=== PATIENT | female | born 1935 | race Caucasian/White ===

== ENCOUNTER 2023-05-14 03:26 | Inpatient (IN) | payer OTHER, SELFPAY ==
[2023-05-13 19:46] VITALS: BP 142/93
[2023-05-13 20:18] LABS: % Basophils 0.4 % (0-2); % Eosinophils 0.6 % (0-6); % Immature Granulocytes 0.2 % (0-0.5); % Lymphocytes 46.8 % (20.5-51.1); % Monocytes 11.4 % (1.7-9.3); % Neutrophils 40.6 % (42.2-75.2); Absolute Lymphocytes 2.2 10^3/uL (1.2-3.4); Absolute Monocytes 0.5 10^3/uL (0.1-0.6); Absolute Neutrophils 1.9 10^3/uL (1.4-6.5); Hemoglobin 14.9 g/dL (12.0-16.0); Mean Corp Hgb Conc. 34.7 g/dL (33.0-37.0); Mean Corpuscular Hgb 29.9 pg (27.0-31.0); Mean Corpuscular Volume 86.3 fL (81.0-99.0); Mean Platelet Volume 10.9 fL (7.4-10.4); Nucleated Red Blood Cells % 0 %; Platelet Count 178 10^3/uL (130-400); Red Blood Cell Count 4.98 10^6/uL (4.20-5.40); Red Cell Dist. Width 12.8 % (11.5-14.5); White Blood Cell Count 4.7 10^3/uL (4.8-10.8)
[2023-05-13 20:32] LABS: COVID-19 Antigen Negative (Negative)
[2023-05-13 20:35] LABS: ALT (SGPT) 20 U/L (0-35); AST (SGOT) 28 U/L (14-36); Alkaline Phosphatase 104 U/L (38-126); Blood Urea Nitrogen 20 mg/dl (7-17); Calcium 9.2 mg/dl (8.4-10.2); Carbon Dioxide 29 mmol/L (22-30); Chloride 104 mmol/L (98-107); Glucose 118 mg/dl (70-99); Potassium 3.5 mmol/L (3.5-5.1); Sodium 137 mmol/L (135-145); Total Bilirubin 0.8 mg/dl (0.2-1.3); eGFR > 60.00
[2023-05-13 21:02] VITALS: BP 110/75
[2023-05-13 22:00] VITALS: BP 122/82
--- NOTE | 2023-05-13 23:18 | ED.GENMED ---
History of Present Illness
General
Chief Complaint: Cough
Source: patient and family
Exam Limitations: other (daughter helped with interpreting)
Time Seen by Provider: 05/13/23 22:23
Nursing documentation reviewed up to this point in time: agreed with
Travel History
Have you had any contact with someone who has COVID-19?: Yes
Comment: patient
Do you have any symptoms of coronavirus? Fever > 100 degrees, chills, cough, shortness of breath, sore throat, loss of taste or smell, muscle aches, or headache?: Yes
Symptoms:: cough
History of Present Illness
History of Present Illness:
pt is a 87 y/o F coming from home
with daughter
2 weeks ago tested pos for covid at home; had low grade temp, cough. never really got rid of the cough
pt has had low energy, poor appetite, dizziness, and is couhgin frequently
then today earler around 4 pm she felt some shoulder pain that was pretty bad. it has eased up.
on arrival she was told she was in a fib. which is new for her.
she has never had A fib.
she doesn't feel any palpitations and doesn't admit to feeling sob
but daughter says she has been much less active than normal the past 2 weeks, just walking to the bathroom and then then the nuzhat and back to bed.
pt has not had any new fever, hemoptysis.
Past History
Past History
ED Past Medical History: HTN and NIDDM
Social History
Tobacco: Non-smoker
Alcohol: None
Drug: None
Personal: Single
Living: with family
Review of Systems
Review of Systems
Allergies reviewed?: Yes
All Other Systems: Not applicable
Phy Exam
Physical Exam
Physical Exam:
GENERAL: Alert , in no apparent distress
EYE: pupils equal and reactive
NECK: Supple
ENT: o/p clr, mmm.
CARDIAC: Regular rate and rhythm .
LUNGS: coughing occasionally, mildly tachypneic, diminished bases;
ABDOMEN: Soft, obese, nontender without focal tenderness, no r/g, no cvat, normal bowel sounds
NEUROLOGICAL: Alert and oriented, no focal neuro deficits
SKIN: Warm and dry, skin intact.
MUSCULOSKELETAL: No edema, well perfused. neg felisha's sign
PSYCH: Normal and appropriate interaction.
Course
Orders/Labs/Results
Orders:
Orders
05/13/23 19:54
EKG [Electrocardiogram (*1)] Urgent
Reason for Study: Tachycardia
EKG- Treatment ONCE
05/13/23 20:07
CMP [Comprehensive Metabolic Panel] Urgent
Complete Blood Count/With Diff Urgent
Influenza A+B Rapid Molecular Urgent
DANICA Source: Nasal Swab
Specimen Description:
05/13/23 20:08
COVID-19 Antigen Urgent
Source: Nasal Swab
05/13/23 20:10
CR Chest - 2 Views Urgent
Comment:
Reason For Exam: cough
05/13/23 23:12
NT-proBNP Urgent
Troponin I Urgent
05/14/23 00:00
CT Chest Pe Study Urgent
Reason For Exam: new onset afib, cough, sob, shoulder pain
05/14/23 01:03
0.9% Sodium Chloride 500 ml [Nss] 500 ml IV BOLUS
05/14/23 02:07
Dexamethasone Sod Phosphate [Decadron] 10 mg IV NOW STA
Diltiazem HCl [Cardizem] 15 mg IV NOW STA
05/14/23 02:32
Admit/Transfer Patient As Directed
Co-Sign Provider:
Level of Care: Inpatient admission
Assign to:: Telemetry
Physician / Group: [email or web address]
Diagnosis: New onset fast AF , Post covid syndrome
Reason for Telemetry: Arrhythmia
Date to Stop Telemetry: 05/17/23
Time to Stop Telemetry: 11:00
Reason for Hospitalization: New onset fast AF , Post covid syndrome
Expected length of stay greater than two midnights?: Yes
ELOS- Estimated Length of Stay in days: 3
I certify the patient meets the requirements for IP care: Yes
05/14/23 02:34
Code Status As Directed
Resuscitation Status: Full Code
05/14/23 03:27
Dextrose 50%-Water [Dextrose 50% Syringe] 12.5 grams IV [id number] PRN
Glucagon [GlucaGen] 1 mg IM PRN PRN
Metoprolol [Lopressor] 5 mg IV Q4HPRN PRN
05/14/23 03:27
CARDIOLOGY CONSULT Routine
Consulting Provider: Ita Crawley
Was physician already notified: No
Reason for consult: New onset fast AF , Post covid syndrome
Consult Notification Routine
Specialty to Notify: Cardiology
Activity As Directed
Activity Level: With Assistance
Bedside Glucose Monitoring As Directed
Frequency: AC&HS
Comment: Change to q6h if pt on TPN, tube feeding or not eating
Intake/ Output As Directed
Frequency: Per unit guidelines
Vital Signs As Directed
Frequency: Per unit guidelines
Weight As Directed
Frequency: Daily
DX Deep Vein Thrombosis Video Routine
05/14/23 06:00
Echo 2D MMode Color/Doppler IN AM
Reason for Study: new onset AF
1800 calorie (15 carb) Diabetic
Basic Metabolic Panel IN AM
Glycohemoglobin (HgbA1c) IN AM
Occupational Therapy Consult [Ot Eval And Treat] IN AM
Physical Therapy Consult [Pt Eval And Treat] IN AM
Activity Level: With Assistance
05/14/23 07:30
Insulin Aspart Corrective Low [Novolog Flexpen-Low Resistance] See Protocol SC AC
05/14/23 08:00
Metoprolol [Lopressor] 12.5 mg PO BID
05/14/23 18:00
Enoxaparin Sodium [Lovenox] 40 mg SC QPM
05/17/23 11:00
DC Protocol for Telemetry ONCE
Abnormal Lab Results
05/13/23
20:07
WBC 4.7 L 10^3/uL
(4.8-10.8)
MPV 10.9 H fL
(7.4-10.4)
Neutrophils % 40.6 L %
(42.2-75.2)
Monocytes % 11.4 H %
(1.7-9.3)
BUN 20 H mg/dl
(7-17)
Glucose 118 H mg/dl
(70-99)
05/13/23 20:07
05/13/23 20:07
Vital Signs
Initial and Last Documented VS:
Initial Vital Signs
Temp Pulse Resp BP Pulse Ox
98.8 F 124 20 142/93 93
05/13/23 19:46 05/13/23 19:46 05/13/23 19:46 05/13/23 19:46 05/13/23 19:46
Last Documented Vital Signs
Temp Pulse Resp BP Pulse Ox
98.8 F 93 22 120/86 90
05/13/23 19:46 05/14/23 02:45 05/14/23 02:45 05/14/23 02:03 05/14/23 02:45
MDM/Problems Addressed
Differential Diagnosis Includes:
PE, bronchtitis, pneumonia, dehydration, CHF, copd, asthma, afib
MDM/Problems Addressed:
palestinian speaking; daughter isasking to stay with her; NEW ONSET AFIB;
here for 2 weeks cough, fatigue, not eating, lightheadedness after having covid (tested at home); h/o htn ,and NIDDM; pt has no cardiac history; had what sounds like asthmatic bronchitis/pna in nov and was on inhalers abx and steroids; never saw
pulm:
here patient has new onset afib with rvr, low 100s-120s; was actually around 100 for a while but up to 120 now so getting dilt; had shoulder pain/chest pain today which eresolved; neg trop, CT PE no PE; coughing frequently; pulse ox 93%; getting a
dose of steroids too for the cough and the findings on ct showing small airway inflammation
given a dose of ditizaem improved heart rate
requires admission
cards consult
hold on AC at htis time.
*Critical Care Note
Total Time (30-74mins, 75-104mins- exclusive of procedures): Not Applicable
ED Attending Note
-
Portions of this chart may have been created with voice recognition software.� Occasional wrong word or��sound alike� substitutions may have occurred due to the inherent limitations of voice recognition software.
Discharge Plan
Departure
Patient Disposition: Admit
Date of Disposition: 05/14/23
Time of Disposition: 02:00
Admit to: Telemetry
Presentation/result/management discussed w/ accepting MD/DO: Hospitalist
Condition: Fair
Covid-19: Negative COVID-19
Discharge Problem:
New onset a-fib, Fatigue
Interventions
Interventions:
*Risk Screen - Suicide Last Done: 05/14/23 02:32
*General Assessment Last Done: 05/14/23 02:32
*Neglect/Abuse Screening Last Done: 05/14/23 02:32
ED- Fall Risk Assessment Last Done: 05/14/23 02:32
*ED COVID-19 Vaccine History Last Done: 05/14/23 02:32
*Nursing Disposition Last Done: 05/14/23 03:07
ED- Pulmonary Assessment Last Done: 05/13/23 21:06
Discharge Date and Time
Discharge Date/Time: 05/14/23 03:07
[2023-05-13 23:35] VITALS: BP 98/57
[2023-05-13 23:48] LABS: NT-proBNP 1200 pg/ml; Troponin I < 0.012 ng/ml
[2023-05-14] VITALS (9 sets, daily range): BP systolic 120–142; BP diastolic 73–101; PULSE 143; O2SAT 93; BMI 43.3
[2023-05-14] MEDS: NSS 500 IV (01:03)
[2023-05-14] MEDS: DECADRON 10 MG IV (02:19)
[2023-05-14] MEDS: CARDIZEM 15 MG IV (02:20)
--- NOTE | 2023-05-14 02:28 | HPS.HSE ---
Family Physician
-
Family Physician: PHYSICIAN PRIVATE
Chief Complaint
-
2 weeks of cough, fatigue,
History of Present Illness
87F Bangladeshi speaker HX [id number], HTN pw 2 weeks of cough, fatigue, poor POs, lightheadedness after having POS covid at home. Noted new onset fast AF with VR up to 120.POx 93%
ROS
Coughing frequently
Medical History
Past Medical History
Past Medical History: Reports HTN and NIDDM
Past Surgical History: Reports None
Social History
Tobacco: Non-smoker
Alcohol: None
Living: With Family
Family History
Family History: Not pertinent
Allergies / Home Medications
Allergies reflects when Allergies were last updated in [employer].
Home Medications with original date entered in [employer]
Allergy/Medication List:
Allergies
Allergy/AdvReac Type Severity Reaction Status Date / Time
No Known Allergies Allergy Unverified 05/13/23 19:54
If medication reconciliation has not been performed, why?: Medication List N/A
Review of Systems
-
Constitutional: Reports Fever and Other (poor POs )
EENT: Reports No Symptoms
Respiratory: Reports Cough
Cardiac: Reports No Symptoms
Abdomen/GI: Reports No Symptoms
: Reports No Symptoms
Musculoskeletal: Reports No Symptoms
Skin: Reports No Symptoms
Neurological: Reports No Symptoms
Endocrine: Reports No Symptoms
Hematologic/Lymphatic: Reports No Symptoms
Psych: Reports No Symptoms
Physical Exam
Vital Signs
Vital Signs
Temp Pulse Resp BP Pulse Ox
98.8 F 106 24 120/86 90
05/13/23 19:46 05/14/23 02:15 05/14/23 02:15 05/14/23 02:03 05/14/23 02:15
Physical Exam
General: Other (see below )
Laboratory Results
-
05/13/23 20:07
05/13/23 20:07
Laboratory Results
Total Bilirubin 0.8 mg/dl (0.2-1.3) 05/13/23 20:07
AST 28 U/L (14-36) 05/13/23 20:07
ALT 20 U/L (0-35) 05/13/23 20:07
Alkaline Phosphatase 104 U/L (38-126) 05/13/23 20:07
Troponin I < 0.012 ng/ml 05/13/23 23:12
Data Reviewed
-
CT Scan: Report Reviewed by me
Lab Data: Labs Reviewed by me
Impression/Plan
-
Reviewed VS: unremarkable except HR 110-120s BP 120/65 POx low 90s
PE
Gen: no apparent distress
HEENT: anicteric
Neck: supple
Lungs: coughing occasionally, mildly tachypneic, diminished bases;
Cor: irregular , S1 S2
Abdomen: soft benign exam
RETAIL SELLING SPECIALIST: AAO3 NFND
MS: no edema
Psych: appropriate interaction.
GMA1PB2- VASc score: total 4 points ( 2 for Age > 75, 1 for Female, 1 for HTN)
Data
WCC 4.7
Unremarkable BMP
NEG TPNI
pro BNP 1200
NEG Covid Ag
NEG Flu A &B
05/13/22 CTA chest: no acute PE
ASSESSMENT & PLAN
No prior admission to ER
Pending Rx reconciliation
Bangladeshi only speaker
New onset AF with VR 120s
[id number]- VASc score: total 4 points (2 for Age > 75, 1 for Female, 1 for HTN)
- Rate control: start Metoprolol 12.5 mg q12h - IV Metoprolol 5 mg q4H PRN for HR > 120
- AC: await Card evaluation for Ac
- ECHO
- DCA card consult
NEG Covid upon admission
Recent outpatient Covid at home - POS 2 weeks ago
- PT/OT
HX Pre Diabetic not on any Meds
- add ISS low
HX HTN - Normotensive for now
- Pending Rx reconciliation
- Observe BP
Obesity
DVT Px: LMWH
Full code
IP TLM
--- NOTE | 2023-05-14 04:17 | PTCARENOTE ---
Received pt from ER, pt ambulatory in room. AAOx3, VSS. Sierra Leonean speaking, daughter translating. Afib on tele HR low 100s.
[2023-05-14] MEDS: LOPRESSOR 5 MG IV (04:51)
[2023-05-14] MEDS: LOPRESSOR 12.5 MG PO (07:44)
[2023-05-14 07:45] LABS: Blood Urea Nitrogen 17 mg/dl (7-17); Calcium 8.7 mg/dl (8.4-10.2); Carbon Dioxide 25 mmol/L (22-30); Chloride 104 mmol/L (98-107); Estimated Creatinine Clearance 82 ml/min; Glucose 163 mg/dl (70-99); Potassium 3.5 mmol/L (3.5-5.1); Sodium 139 mmol/L (135-145); eGFR > 60.00
[2023-05-14] MEDS: LOVENOX 40 MG SC ×2 (07:45→20:07)
[2023-05-14 08:21] LABS: Glucose - Point of Care 149 mg/dl (70-99)
--- NOTE | 2023-05-14 09:04 | W.PN.HOSP.TC ---
Today's Communication/Plan
-
see bold
Assessment / Plan
Assessment / Plan
#Paroxysmal atrial fibrillation with rapid ventricular response
Appreciate cardiology input, recommend Toprol 25 mg twice a day, start Eliquis 5 mg twice a day, echocardiogram requested
#Benign essential hypertension
Hold home amlodipine
Monitor blood pressure on increased dose of Toprol
#Recent coronavirus
Resolved
#Type 2 diabetes
Hemoglobin A1c 6.3
Continue carb controlled diet, sliding scale insulin
#Hyperlipidemia
Continue statin
#Dementia
Continue Namenda
#Gastroesophageal reflux disease
Continue PPI
#Morbid obesity with a BMI 43
Affects all aspects of care
DVT prophylaxis�Eliquis
Physical Exam
General: Obese, no acute distress
HEENT: Normocephalic, Atraumatic, EOMI, MMM
Respiratory: Clear to Auscultation bilaterally
Cardiac: Normal S1/S2, Regular Rate and Rhythm
GI: Soft, Nontender, Nondistended, Normal Bowel Sounds
Extremities: No Clubbing, Cyanosis, or Edema
Anticipated Discharge: 24 - 48 hours
Subjective/Interval History
-
Date of Service: May 14, 2023
Denies palpitations
Objective Data
-
Labs:
Laboratory Results
05/14/23
07:10
Sodium 139
Potassium 3.5
Chloride 104
Carbon Dioxide 25
BUN 17
Creatinine 0.5 L
Glucose 163 H
Calcium 8.7
Vital Signs:
Vital Signs
Temp Pulse Resp BP Pulse Ox
97.6 F 130 16 137/101 91
05/14/23 07:35 05/14/23 07:35 05/14/23 07:35 05/14/23 07:35 05/14/23 07:35
--- NOTE | 2023-05-14 10:09 | CON.CAR ---
Addendum entered and electronically signed by Jeremy Peraza MD 05/14/23 12:32:
Agree with PA-C note and assessment
Agree with PA-C plan
Exam:
H&T normocephalic atraumatic
JVP 6
Cor regular no murmur
Lungs clear to auscultation bilaterally
Abdomen soft nontender positive bowel sounds
Alert and x 3
Nonfocal neurologically
No extremity edema
PCP: Yuridia Garrett
Technology Consultant: Dr. Pablo Burgess [facility]
Impression:
Presented 05/13/2023 with cough and fatigue
Atrial fibrillation with rapid ventricular response
Recent COVID infection
Hypertension
Type 2 diabetes, diet controlled
Hyperlipidemia
GERD
Echo: Ordered
Plan:
Patient is a 87-year-old Slovak speaking female with past medical history significant for hypertension, hyperlipidemia, type 2 diabetes (diet controlled) and GERD who presents with 2 weeks of ongoing cough fatigue, poor appetite and lightheadedness
after having recent COVID 19 at home.� On arrival to emergency department EKG showed patient was in atrial fibrillation with rapid ventricular response.� Troponin was undetectable, proBNP 1200.� Chest x-ray showed mild left basilar compressive
atelectasis with large hiatal hernia.� CT of chest was negative for PE with mosaic attenuation throughout lungs bilaterally and large hiatal hernia.� Patient was COVID and flu negative on admission.� At time of this evaluation patient notes
intermittent palpitations and shortness of breath with exertion.� She continues to have cough.
Patient's daughter helps translate.� She reports patient did complain of higher heart rates for approximately the last month.� Outpatient supervisor film processing is Dr. Pablo Burgess in [place].� Daughter reports she had an echocardiogram in the fall 2022
in preparation for cataract surgery.
-Presents 05/13/2023 with cough, fatigue and lightheadedness after having been diagnosed with COVID 2 weeks ago.� Flu and COVID-negative here.
-Paroxysmal atrial fibrillation with rapid ventricular response.� This appears to be a new diagnosis.� Most likely exacerbated by recent COVID infection.� Although daughter reports patient had elevated heart rate for approximately 1 month.
-Heart rates remain accelerated after getting IV diltiazem bolus in emergency department and IV Lopressor.�
-Discussed rate control strategy at this time with possible eventual cardioversion once patient has improved from respiratory standpoint from COVID and has been on anticoagulation.�
-Start Toprol 25 mg twice a day for rate control. {Takes Toprol 25 mg daily at home.}
-Initiate anticoagulation with Eliquis 5 mg twice daily.� Risks and benefits discussed in great detail with daughter.� Agreeable to initiate
-Consult case management for cost analysis of Eliquis
-Check echocardiogram
-History of hypertension on amlodipine and Toproll as outpatient.� Would hold amlodipine and uptitrate beta-laila for both blood pressure and heart rate control.
-Will attempt to get outpatient cardiology records if patient still here on Tuesday.
-Options for cardioversion include initiating blood thinner and rate control with Toprol all and can consider cardioversion in 3 weeks after uninterrupted oral anticoagulation versus MAKENZIE guided cardioversion early next week. Would uptitrate her
metoprolol now and follow rates and could even consider adjunct amiodarone if necessary. I suspect her atrial fibrillation may be related to her recent COVID infection and hopefully this will self convert over the next days to weeks. Patient is
relatively asymptomatic in her atrial fibrillation at this time.
Original Note:
Consultation
Consultation Request
Date/Time Consultation Requested: 05/14/2023
Date/Time Consultation Performed: 05/14/2023
Requesting Provider: Dr. oLve
Performing Provider: Kaleigh Rice PA-C for Dr. Peraza
Reason for Consultation: Atrial fibrillation with rapid ventricular response
Medical History
-
History of Present Illness:
Patient is a 87-year-old Slovak speaking female with past medical history significant for hypertension, hyperlipidemia, type 2 diabetes (diet controlled) and GERD who presents with 2 weeks of ongoing cough fatigue, poor appetite and lightheadedness
after having recent COVID 19 at home. On arrival to emergency department EKG showed patient was in atrial fibrillation with rapid ventricular response. Troponin was undetectable, proBNP 1200. Chest x-ray showed mild left basilar compressive
atelectasis with large hiatal hernia. CT of chest was negative for PE with mosaic attenuation throughout lungs bilaterally and large hiatal hernia. Patient was COVID and flu negative on admission. At time of this evaluation patient notes
intermittent palpitations and shortness of breath with exertion. She continues to have cough.
Patient's daughter helps translate. She reports patient did complain of higher heart rates for approximately the last month. Outpatient supervisor film processing is Dr. Pablo Burgess in [place]. Daughter reports she had an echocardiogram in the fall 2022
in preparation for cataract surgery.
Past medical history:
Hypertension
Type 2 diabetes, diet controlled
Hyperlipidemia
GERD
Bilateral knee replacements
Past Medical History
Past Medical History: Other (See HPI)
Past Surgical History: Orthopedic (Bilateral knee replacements) and Other (Umbilical hernia repair and left leg vein stripping)
Social History
Tobacco: Non-Smoker
Alcohol: None
Drug: None
Living: With Family
Allergies / Home Medications
Allergy/AdvReac Type Severity Reaction Status Date / Time
No Known Allergies Allergy Unverified 05/13/23 19:54
Medication Instructions Recorded Confirmed Type
Fish Oil 05/14/23 History
acetaminophen 300 mg-codeine 30 mg tab PO PRN PRN pain 05/14/23 History
tablet
amlodipine 5 mg tablet 5 mg PO DAILY 05/14/23 05/14/23 History
atorvastatin 10 mg tablet (Lipitor) 10 mg PO DAILY 05/14/23 05/14/23 History
esomeprazole magnesium 40 mg 40 mg PO DAILY 05/14/23 05/14/23 History
capsule,delayed release (Nexium)
folic acid 1 mg tablet 1 mg PO DAILY 05/14/23 05/14/23 History
lisinopril 12.5 mg PO DAILY 05/14/23 05/14/23 History
meclizine 25 DAILY 05/14/23 History
memantine 10 mg tablet 10 mg DAILY 05/14/23 05/14/23 History
metoprolol succinate 25 mg 2 mg PO DAILY 05/14/23 05/14/23 History
tablet,extended release 24 hr
(Toprol XL)
Review of Systems
-
History Source: Patient and Family (Daughter who helps translate)
All other systems: Negative unless noted
Physical Exam
Vital Signs
Temp Pulse Resp BP Pulse Ox
97.6 F 130 16 137/101 91
05/14/23 07:35 05/14/23 07:35 05/14/23 07:35 05/14/23 07:35 05/14/23 07:35
GEN: No distress, awake, Ox3, lying in bed
HEENT: supple, anicteric, mmm
LUNGS: diffuse crackles at bases otherwise CTA
CV: Distant heart tones irreg irreg, S1/S2, 1/6 syst murmur, no rub or gallop
ABD: soft, BS+, NT/ND
EXT: No edema, no clubbing or cyanosis
NEURO: Gross non-focal
SKIN: No rash, warm, dry, pink
Lab Results
05/13/23 20:07
05/14/23 07:10
Troponin I < 0.012 ng/ml 05/13/23 23:12
Wbe-F-Zxipzqyujll Pept 1200 pg/ml 05/13/23 23:12
Impression / Plan
-
PCP: Yuridia Garrett
Technology Consultant: Dr. Pablo Burgess PA [facility]
Impression:
Presented 05/13/2023 with cough and fatigue
Atrial fibrillation with rapid ventricular response
Recent COVID infection
Hypertension
Type 2 diabetes, diet controlled
Hyperlipidemia
GERD
Echo: Ordered
Plan:
Patient is a 87-year-old Slovak speaking female with past medical history significant for hypertension, hyperlipidemia, type 2 diabetes (diet controlled) and GERD who presents with 2 weeks of ongoing cough fatigue, poor appetite and lightheadedness
after having recent COVID 19 at home. On arrival to emergency department EKG showed patient was in atrial fibrillation with rapid ventricular response. Troponin was undetectable, proBNP 1200. Chest x-ray showed mild left basilar compressive
atelectasis with large hiatal hernia. CT of chest was negative for PE with mosaic attenuation throughout lungs bilaterally and large hiatal hernia. Patient was COVID and flu negative on admission. At time of this evaluation patient notes
intermittent palpitations and shortness of breath with exertion. She continues to have cough.
Patient's daughter helps translate. She reports patient did complain of higher heart rates for approximately the last month. Outpatient supervisor film processing is Dr. Pablo Burgess in [place]. Daughter reports she had an echocardiogram in the fall 2022
in preparation for cataract surgery.
-Presents 05/13/2023 with cough, fatigue and lightheadedness after having been diagnosed with COVID 2 weeks ago. Flu and COVID-negative here.
-Paroxysmal atrial fibrillation with rapid ventricular response. This appears to be a new diagnosis. Most likely exacerbated by recent COVID infection. Although daughter reports patient had elevated heart rate for approximately 1 month.
-Heart rates remain accelerated after getting IV diltiazem bolus in emergency department and IV Lopressor.
-Discussed rate control strategy at this time with possible eventual cardioversion once patient has improved from respiratory standpoint from COVID and has been on anticoagulation.
-Start Toprol 25 mg twice a day for rate control. {Takes Toprol 25 mg daily at home.}
-Initiate anticoagulation with Eliquis 5 mg twice daily. Risks and benefits discussed in great detail with daughter. Agreeable to initiate
-Consult case management for cost analysis of Eliquis
-Check echocardiogram
-History of hypertension on amlodipine and Toproll as outpatient. Would hold amlodipine and uptitrate beta-laila for both blood pressure and heart rate control.
-Will attempt to get outpatient cardiology records if patient still here on Tuesday.
Data Reviewed
-
EKG: Report Reviewed by me, Discussed with Physician, Discussed with Patient and Discussed with Family
Radiology: Report Reviewed by me, Discussed with Physician, Discussed with Patient and Discussed with Family
CT Scan: Report Reviewed by me, Discussed with Physician, Discussed with Patient and Discussed with Family
Labs: Labs Reviewed by me, Discussed with Physician, Discussed with Patient and Discussed with Family
[2023-05-14 11:03] LABS: Glycohemoglobin (HgbA1c) 6.3 % (4.0-5.6)
[2023-05-14 11:39] LABS: Glucose - Point of Care 152 mg/dl (70-99)
[2023-05-14] MEDS: TOPROL XL 25 MG PO ×2 (12:17→20:07)
--- NOTE | 2023-05-14 12:25 | CM ---
Addendum entered by Tori Tom 05/14/23 14:54:
TC to Pharmacy re medication costs
Eliquis 5 mg po bid and Xaralto 20 mg po qd.
per pharmacist patient with government insurance and both will be covered.
Original Note:
Patient seen bedside with daughter translating in room.
Patient lives with daughter in a 3 story home, patient stays on 2nd and 3rd floor.
Patients daughter is her caregiver.
patient can ambulate with a RW.
No VN or skilled rehab in the past.
PCP: Dr Schaefer
Pharmacy: [facility]
Plan:home with family, possible VN needs.
Daughter will transport.
[2023-05-14 14:25] LABS: TSH Reflex To Free T4 0.64 uIU/ml (0.47-4.68)
[2023-05-14 16:10] LABS: Glucose - Point of Care 160 mg/dl (70-99)
[2023-05-14] MEDS: TYLENOL 650 MG PO (18:00)
[2023-05-14] MEDS: NAMENDA 5 MG PO (20:06)
[2023-05-14] MEDS: OSCAL CAL 500 500 MG PO (20:07)
[2023-05-14] MEDS: ANTIVERT 25 MG PO (20:07)
[2023-05-14] MEDS: MIRALAX 17 GRAMS PO (21:25)
[2023-05-14 21:30] LABS: Glucose - Point of Care 155 mg/dl (70-99)
[2023-05-15 04:35] VITALS: BP 109/59
[2023-05-15 06:00] VITALS: BMI 43.5
[2023-05-15 07:30] VITALS: BP 129/76
[2023-05-15 08:15] LABS: Glucose - Point of Care 112 mg/dl (70-99)
[2023-05-15] MEDS: LOVENOX 40 MG SC (08:20)
[2023-05-15] MEDS: ANTIVERT 25 MG PO ×2 (08:21→20:35)
[2023-05-15] MEDS: TOPROL XL 25 MG PO ×2 (08:21→20:39)
[2023-05-15] MEDS: NAMENDA 5 MG PO ×2 (08:21→20:38)
[2023-05-15] MEDS: FOLVITE 1 MG PO (08:21)
[2023-05-15] MEDS: OSCAL CAL 500 500 MG PO ×2 (08:21→20:39)
[2023-05-15] MEDS: LIPITOR 10 MG PO (08:22)
[2023-05-15] MEDS: PROTONIX 40 MG PO (08:22)
--- NOTE | 2023-05-15 08:39 | W.PN.HOSP.TC ---
Today's Communication/Plan
-
see bold
Assessment / Plan
Assessment / Plan
#Paroxysmal atrial fibrillation with rapid ventricular response
Appreciate cardiology input, s/p diltiazem IV
Recommend Toprol 25 mg twice a day, start Eliquis 5 mg twice a day, echocardiogram requested
#Benign essential hypertension
Hold home amlodipine
Monitor blood pressure on increased dose of Toprol
#Recent coronavirus
Resolved, supportive care for her cough
#Type 2 diabetes
Hemoglobin A1c 6.3
Continue carb controlled diet, sliding scale insulin
#Chronic neck pain
Tylenol, lidocaine patch, resume home Flexeril
#Hyperlipidemia
Continue statin
#Dementia
Continue Namenda
#Gastroesophageal reflux disease
Continue PPI
#Morbid obesity with a BMI 43
Affects all aspects of care
DVT prophylaxis�Eliquis
Updated daughter at bedside 05/15
Physical Exam
General: Obese, no acute distress
HEENT: Normocephalic, Atraumatic, EOMI, MMM
Respiratory: Clear to Auscultation bilaterally
Cardiac: Normal S1/S2, irregularly irregular
GI: Soft, Nontender, Nondistended, Normal Bowel Sounds
Extremities: No Clubbing, Cyanosis, or Edema
Anticipated Discharge: 24 - 48 hours
Subjective/Interval History
-
Date of Service: May 14, 2023
Complains of her chronic neck pain.
Objective Data
-
Labs:
Laboratory Results
05/14/23
07:10
Sodium 139
Potassium 3.5
Chloride 104
Carbon Dioxide 25
BUN 17
Creatinine 0.5 L
Glucose 163 H
Calcium 8.7
Vital Signs:
Vital Signs
Temp Pulse Resp BP Pulse Ox
97.7 F 115 16 137/81 93
02/03/24 11:00 05/14/23 11:00 05/14/23 11:00 05/14/23 11:00 05/14/23 11:00
--- NOTE | 2023-05-15 08:43 | W.PN.UPDATE ---
Update Note
Progress Note Update
Reviewed patient's telemetry and she has improving heart rate control. Heart rates are in the 80s to 90s this morning. Overall trend is improved on the initiation of metoprolol. Would continue the patient's oral anticoagulation and metoprolol as
ordered and can pursue outpatient cardioversion in 3 to 4 weeks if the patient does not convert to sinus rhythm on her own. I discussed with the daughter who is her staff interpreter that this can be performed through Dr. Fay's office or ours and I
will have our team check in on Tuesday to arrange appropriate follow-up.
[2023-05-15 11:15] VITALS: BP 136/85
[2023-05-15 11:20] LABS: Glucose - Point of Care 137 mg/dl (70-99)
[2023-05-15] MEDS: FLEXERIL 10 MG PO (11:36)
[2023-05-15] MEDS: LIDOCAINE 4% PATCH 2 PATCH TOPICAL (11:37)
[2023-05-15] MEDS: ROBITUSSIN AC 5 ML PO ×3 (11:37→21:07)
[2023-05-15 15:30] VITALS: BP 145/92
[2023-05-15 16:21] LABS: Glucose - Point of Care 107 mg/dl (70-99)
[2023-05-15 19:25] VITALS: BP 142/89
[2023-05-15] MEDS: ELIQUIS 5 MG PO (20:35)
[2023-05-15] MEDS: ProAIR HFA INHALER 2 PUFF INH (21:11)
[2023-05-15 21:19] LABS: Glucose - Point of Care 105 mg/dl (70-99)
[2023-05-15] MEDS: MIRALAX 17 GRAMS PO (23:02)
[2023-05-15 23:27] VITALS: BP 121/76
[2023-05-16 03:21] VITALS: BP 124/77
[2023-05-16 06:00] VITALS: BMI 43.6
[2023-05-16 08:00] VITALS: BP 146/85
[2023-05-16] MEDS: LIDOCAINE 4% PATCH 2 PATCH TOPICAL (08:24)
[2023-05-16] MEDS: FOLVITE 1 MG PO (08:24)
[2023-05-16] MEDS: OSCAL CAL 500 500 MG PO (08:24)
[2023-05-16] MEDS: PROTONIX 40 MG PO (08:24)
[2023-05-16] MEDS: LIPITOR 10 MG PO (08:24)
[2023-05-16] MEDS: FLEXERIL 10 MG PO (08:24)
[2023-05-16] MEDS: TOPROL XL 25 MG PO (08:24)
[2023-05-16] MEDS: ANTIVERT 25 MG PO (08:25)
[2023-05-16] MEDS: ELIQUIS 5 MG PO (08:25)
[2023-05-16] MEDS: NAMENDA 5 MG PO (08:26)
[2023-05-16 08:28] LABS: Glucose - Point of Care 102 mg/dl (70-99)
[2023-05-16] MEDS: DRISDOL (VITAMIN D2) 50000 UNITS PO (10:00)
[2023-05-16] MEDS: ROBITUSSIN AC 5 ML PO (10:13)
[2023-05-16] MEDS: DULCOLAX 10 MG RECTAL (10:20)
[2023-05-16 12:07] LABS: Glucose - Point of Care 120 mg/dl (70-99)
--- NOTE | 2023-05-16 13:12 | W.DS.TRANS ---
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
-
Discharge Instructions:
Discharge Diagnosis/Procedures Atrial fibrillation with RVR.
Chronic cough
Hiatal hernia
Diet 2 Gram Sodium
Instructions:
Stand-Alone Forms:
Changes to Home Medications: Yes
Discharge Medications:
DC Medications w/original date entered in [facility]
albuterol sulfate 90 mcg/actuation aerosol inhaler 2 puff inhalation R Q4 PRN sob/wheezing 05/14/23
atorvastatin 10 mg tablet (Lipitor) 10 mg PO DAILY High Cholesterol 05/14/23
calcium citrate 250 mg PO BID Supplement 05/14/23
ergocalciferol (vitamin D2) 1,250 mcg (50,000 unit) capsule 1,250 mcg PO MO Supplement 05/14/23
folic acid 1 mg tablet 1 mg PO DAILY Supplement 05/14/23
meclizine 25 mg tablet 25 mg PO BID dizziness 05/14/23
memantine 5 mg tablet 5 mg PO BID Neurological Condition 05/14/23
omega 2-mbp-peu-fish oil 1,000 mg (120 mg-180 mg) capsule (Fish Oil) 1 cap PO DAILY Supplement 05/14/23
cyclobenzaprine 10 mg tablet 10 mg PO DAILY Muscle Spasms 05/15/23
apixaban 5 mg tablet (Eliquis) 5 mg PO BID #60 tabs 05/16/23
codeine 10 mg-guaifenesin 100 mg/5 mL oral liquid 5 ml PO Q4HPRN PRN cough #100 mL 05/16/23
metoprolol succinate 25 mg tablet,extended release 24 hr 25 mg PO BID #60 tabs 05/16/23
pantoprazole 40 mg tablet,delayed release 40 mg PO BID #90 tabs 05/16/23
Home Medication Changes
Amlodipine stopped
Toprol dose increased
Eliquis initiated
PPI dose changed to BID for one month
Pending Results: No
== END 2023-05-16 16:39 | disposition home or self-care (01) | DRG 309 ==
LOC: 4 WEST ACU 03:26
PROVIDERS: Physician Assistant; ADMITTING PHYSICIAN Internal Medicine; ATTENDING PHYSICIAN Internal Medicine; EMERGENCY PHYSICIAN Emergency Medicine; OTHER PHYSICIAN Internal Medicine Cardiovascular Disease
DX: I48.0 Paroxysmal atrial fibrillation (principal); J98.11 Atelectasis; Z68.41 Body mass index [BMI] 40.0-44.9, adult; Z11.52 Encounter for screening for COVID-19; M25.519 Pain in unspecified shoulder; E66.01 Morbid (severe) obesity due to excess calories; I10 Essential (primary) hypertension; E11.9 Type 2 diabetes mellitus without complications; E78.5 Hyperlipidemia, unspecified; K21.9 Gastro-esophageal reflux disease without esophagitis; Z79.01 Long term (current) use of anticoagulants; F03.90 Unspecified dementia, unspecified severity, without behavioral disturbance, psychotic disturbance, mood disturbance, and anxiety; K44.9 Diaphragmatic hernia without obstruction or gangrene
CPT/HCPCS: 71046; 71275; 80048; 80053; 82962; 83036; 83880; 84443; 84484; 85025; 87502; 87811; 93005; 93306; 94640; 96361; 96374; 96375; 97162; 97166; 99285; Q9967